=== PATIENT | male | born 1960 | race Caucasian/White ===

== ENCOUNTER 2018-02-01 16:35 | Emergency (ER) | END 2018-02-01 19:20 | disposition home or self-care (01) ==

== ENCOUNTER 2018-03-06 17:18 | Emergency (ER) | END 2018-03-06 19:35 | disposition home or self-care (01) ==

== ENCOUNTER 2018-05-25 15:45 | Emergency (ER) | payer OTHER ==
[~2018-05-25] VITALS: Ht 165.1 cm; Wt 95.0 kg
[~2018-05-25 15:45] MED LIST: ALBU18HF INHALATION; ALBU2.5V3 NEB; DEXA4TAB PO; PRED20TA PO
[2018-05-25 16:27] VITALS: Ht 165.1 cm; Wt 95.0 kg
[2018-05-25] MEDS ORDERED: IPRATROPIUM (NEB) 0.5 MG/2.5 ML AMP NEB STA (18:16)
[2018-05-25] MEDS ORDERED: ALBUTEROL 0.083% (NEB) 2.5 MG/3 ML AMP NEB STA (18:16)
[2018-05-25] MEDS ORDERED: DEXAMETHASONE 10 MG/ML 1 ML INJ PO STA (18:16)
--- NOTE | 2018-05-25 18:46 | ERD ---
ER Documentation Chief Complaint Chief Complaint SOB/COUGH AND CONGESTION WITH BILATERAL WHEEZING AUSCULTATED HPI 57-year-old male is here with asthma exacerbation for 2 days. Tried using inhaler at home but it did not help. No fever. No hemoptysis or unplanned weight loss. No vomiting. ROS All systems reviewed and are negative except as per history of present illness. Medications Home Meds Active Scripts Dexamethasone* (Dexamethasone*) 4 Mg Tablet, 8 MG PO ONCE, #2 TAB Take in the evening ofr 03/07/18 Prov:MANDO CARSON NP 03/06/18 Albuterol Sulfate* (Ventolin HFA*) 18 Gm Hfa.aer.ad, 2 PUFF INHALATION Q4H, #1 INHALER Prov:MANDO CARSON NP 03/06/18 Albuterol Sulfate* (Albuterol Sulfate* Neb) 0.083%-3 Ml Neb, 2.5 MG NEB Q4 PRN for SHORTNESS OF BREATH, #30 EA Prov:MANDO CARSON NP 03/06/18 Prednisone (Prednisone) 20 Mg Tablet, 20 MG PO DAILY for 3 Days, #3 TAB Prov:MARLA HUNTLEY DO 02/01/18 Albuterol Sulfate* (Ventolin HFA*) 18 Gm Hfa.aer.ad, 2 PUFF INHALATION Q6H PRN for SHORTNESS OF BREATH, #1 INHALER Prov:MARLA HUNTLEY DO 02/01/18 Albuterol Sulfate* (Albuterol Sulfate* Neb) 0.083%-3 Ml Neb, 2.5 MG NEB Q4 PRN for SHORTNESS OF BREATH, #30 EA Prov:MARLA HUNTLEY DO 02/01/18 Allergies Allergies: Coded Allergies: No Known Allergy (Unverified , 05/25/18) PMhx/Soc History of Surgery: No Anesthesia Reaction: No Hx Neurological Disorder: Yes (depression, add) Hx Respiratory Disorders: Yes (asthma) Hx Cardiac Disorders: Yes (htn) Hx Psychiatric Problems: No Hx Miscellaneous Medical Probl: Yes (dm) Hx Alcohol Use: No Hx Substance Use: No Hx Tobacco Use: No Smoking Status: Never smoker FmHx Family History: No diabetes Physical Exam Vitals Vital Signs Date Temp Pulse Resp B/P (MAP) Pulse Ox O2 O2 Flow FiO2 Time Delivery Rate 05/25/18 84 20 91 21 18:27 05/25/18 97.7 87 20 180/96 93 16:27 (124) Physical Exam INITIAL VITAL SIGNS: Reviewed by me GENERAL: Awake, alert and oriented x 4, well appearing, nontoxic, speaking in full sentences. No acute distress HEAD: Atraumatic NECK: Supple. No masses. Full range of motion. No meningismus. No midline tenderness. RESPIRATORY: Wheezing bilaterally, no use of accessory muscles CV: Regular rate and rhythm. No murmurs, rubs, or gallops. Results 24 hrs Current Medications Medications Dose Sig/Ruben Start Time Status Last (Trade) Ordered Route PRN Stop Time Admin Dose Reason Admin Albuterol 5 mg ONCE STAT 05/25/18 DC 05/25/18 (Proventil NEB 18:16 18:25 0.083% (Neb)) 05/25/18 18:18 Ipratropium 0.5 mg ONCE STAT 05/25/18 DC 05/25/18 [place] NEB 18:16 18:25 (Atrovent 05/25/18 18:18 0.02% (Neb)) 10 mg ONCE STAT 05/25/18 DC 05/25/18 Dexamethasone PO 18:16 18:35 (Decadron) 05/25/18 18:18 Procedures/MDM Patient with asthma exacerbation. He was given Decadron and a breathing treatment with improvement and discharged with albuterol inhaler. Patient counseled regarding my diagnostic impression and care plan. Prior to discharge all questions answered. Pt agrees with treatment plan and understands strict return precautions. Pt is instructed to follow up with primary care provider within 24-48 hours. Precautionary instructions provided including instructions to return to the ER if not improving or for any worsening or changing symptoms or concerns. Departure Diagnosis: Primary Impression: Asthma exacerbation Condition: Stable DIANA LYLE PA-C May 25, 2018 18:46
[2018-05-25] MEDS ORDERED: ALBU8.5H8 INH (18:47)
[2018-05-25 19:02] VITALS: BP 165/99; PULSE 99; RESP 20
== END 2018-05-25 19:10 | disposition home or self-care (01) ==
LOC: FTE 15:45
DX: J45.901 Unspecified asthma with (acute) exacerbation (principal); I10 Essential (primary) hypertension; E11.9 Type 2 diabetes mellitus without complications
CPT/HCPCS: 94664; 99283; J1100